=== PATIENT | female | born 1965 | race Hispanic/Latino ===

== ENCOUNTER 2018-08-08 12:58 | Inpatient (IN) | payer OTHER ==
[~2018-08-08] VITALS: Ht 172.7 cm; Wt 112.5 kg
[2018-08-08 13:18] LABS: BASOPHILS % (AUTO) 0.6 % (0.0-5.0); EOSINOPHILS % (AUTO) 1.3 % (0.0-8.0); HEMATOCRIT 35.5 % (36-48); MEAN CORPUSCULAR HEMOGLOBIN 30.6 pg (27.0-33.0); MEAN CORPUSCULAR HGB CONC 34.1 g/dL (32.0-36.0); MEAN CORPUSCULAR VOLUME 89.8 fL (79-99); MONOCYTES % (AUTO) 5.4 % (3.0-13.0); NEUTROPHILS % (AUTO) 67.7 % (40.0-77.0); PLATELET COUNT (AUTO) 280 K/uL (130-400); RED BLOOD CELL COUNT(AUTO) 3.95 MIL/uL (4.00-5.50); RED CELL DISTRIBUTION WIDTH 12.9 % (11.0-15.5)
[2018-08-08 13:25] LABS: POTASSIUM 3.5 mmol/L (3.5-5.1)
[2018-08-08 13:29] LABS: ALBUMIN 4.2 g/dL (3.5-5.0); BILIRUBIN,TOTAL 0.4 mg/dL (0.2-1.0); TOTAL PROTEIN, SERUM 7.9 g/dL (6.0-8.3)
[2018-08-08] MEDS ORDERED: SODIUM CHLORIDE 0.9% 1000ML 1,000 ML IV ONE (13:46)
[2018-08-08] MEDS ORDERED: ACETAMINOPHEN 325 MG TAB ONE (14:01)
[2018-08-08 14:09] LABS: BILIRUBIN,URINE Negative (NEGATIVE); COLOR,URINE Yellow (YELLOW); GLUCOSE, URINE (UA) Negative (NEGATIVE); KETONES,URINE 15 mg/dL (NEGATIVE); LEUKOCYTE ESTERASE ,URINE Negative (NEGATIVE); NITRATE,URINE Negative (NEGATIVE); OCCULT BLOOD,URINE Negative (NEGATIVE); PROTEIN,URINE Negative (NEGATIVE); UROBILINOGEN,URINE 0.2 mg/dL (0.2-1.0)
[2018-08-08 14:24] LABS: APPEARANCE,URINE CLEAR (CLEAR)
[2018-08-08 14:29] LABS: BACTERIA,URINE Rare /HPF (None Seen); RBC,URINE 0-1 /HPF (0-1); SQUAMOUS EPITHELIAL CELL,UR Rare /HPF (0-2); WBC,URINE None Seen /HPF (0-1)
[2018-08-08] MEDS ORDERED: ONDANSETRON HCL 4 MG/2 ML VIAL IVP PRN (16:15)
[2018-08-08] MEDS ORDERED: SODIUM CHLORIDE 0.9% 10 ML VIAL IVP SCH (16:15)
[2018-08-08] MEDS ORDERED: NITROGLYCERIN 0.4 MG SL TAB SL PRN (16:15)
[2018-08-08] MEDS ORDERED: CLONIDINE HCL 0.1 MG TABLET PO PRN (16:15)
[2018-08-08] MEDS ORDERED: POTASSIUM CHLORIDE 20MEQ/100ML 100 ML IV PRN (16:15)
[2018-08-08] MEDS ORDERED: DiphenhydrAMINE HCL 50 MG/ML VIAL IVP PRN (16:15)
[2018-08-08] MEDS ORDERED: POTASSIUM CHLORIDE 10% ELIXIR 20 MEQ/15 ML UDCUP PO PRN (16:15)
[2018-08-08] MEDS ORDERED: ACETAMINOPHEN 325 MG TAB PO PRN ×2 (16:15)
[2018-08-08] MEDS ORDERED: LACTULOSE 20 GM/30 ML UDCUP PO PRN (16:15)
[2018-08-08] MEDS ORDERED: LIDOCAINE HCL-MPF 1% 2ML VIAL IJ PRN (16:15)
[2018-08-08] MEDS ORDERED: GUAIFENESIN-DM 200/20 MG 10 ML PO PRN (16:15)
[2018-08-08] MEDS ORDERED: ZOLPIDEM TARTRATE 5 MG TAB PO PRN (16:15)
[2018-08-08] MEDS ORDERED: MAG HYDROX/AL HYDROX/SIMETH ES 30 ML SUSP UDCUP PO PRN (16:15)
[2018-08-08] MEDS ORDERED: DIPHENHYDRAMINE HCL 25 MG CAPSULE PO PRN (16:15)
[2018-08-08] MEDS ORDERED: IPRATROPIUM/ALBUTEROL SULFATE 3 ML SOLUTION IH PRN (16:30)
[2018-08-08] MEDS: SODIUM CHLORIDE 0.9% 1000ML 1,000 ML IV SCH ×2 (16:30→20:00)
[2018-08-08] MEDS ORDERED: DiphenhydrAMINE HCL 50 MG/ML VIAL ONE (16:42)
[2018-08-08] MEDS ORDERED: IPRATROPIUM/ALBUTEROL SULFATE 3 ML SOLUTION IH ONE (16:57)
[2018-08-08 19:00] VITALS: BP 131/64
[2018-08-08] MEDS ORDERED: SODIUM CHLORIDE 0.9% 1000ML 1,000 ML IV SCH (21:00)
[2018-08-08] MEDS ORDERED: FAMOTIDINE 20MG TAB 20 MG TAB PO SCH (21:00)
[2018-08-08] MEDS: POTASSIUM CHLORIDE 20 MEQ ERTAB PO PRN (21:47)
[2018-08-08] MEDS ORDERED: IBUPROFEN 800 MG TAB PO PRN (23:45)
[2018-08-09] VITALS (19 sets, daily range): BP systolic 100–166; BP diastolic 51–93
[2018-08-09] MEDS: SODIUM CHLORIDE 0.9% 1000ML 1,000 ML IV SCH ×7 (00:30→23:43)
[2018-08-09] MEDS ORDERED: BC POWDER PO (02:48)
[2018-08-09] MEDS ORDERED: LEVO150 PO (02:48)
[2018-08-09] MEDS ORDERED: MELO-108 PO (02:48)
[2018-08-09] MEDS ORDERED: IRBE1TAB41 PO (02:48)
[2018-08-09] MEDS: POTASSIUM CHLORIDE 20 MEQ ERTAB PO PRN (04:06)
[2018-08-09] MEDS ORDERED: FAMOTIDINE 20MG TAB 20 MG TAB ONE (08:41)
[2018-08-09] MEDS: PANTOPRAZOLE SODIUM 40 MG TABLET.DR PO SCH (09:03)
--- NOTE | 2018-08-09 10:54 | NUR ---
MODESTA AWARE OF EGD W MAC AT 1200NOOON TODAY BY DR. SOTO.
[2018-08-09] MEDS ORDERED: PROPOFOL 10 MG/ML 20ML VIAL IV ONE (15:21)
--- NOTE | 2018-08-09 15:45 | NUR ---
DCP CM met with pt discussed dc plans. Pt is independent prior to admission, lives at home alone, parents lives close by. Denies any equipments/services. Pt feels safe to go back home, still drives arranges own meds and needs. DC plan to home once stable. CM to cont to follow up. Addendum: 08/09/18 at 1546 by CARLIE MONTEIRO LVN CM Amended: Links added.
[2018-08-09] MEDS ORDERED: PEG 3350/NA SULF,BICARB,CL/KCL 4000 ML SOLN PO SCH (17:00)
[2018-08-09] MEDS ORDERED: MAGNESIUM CITRATE 296 ML SOLUTION PO SCH (17:00)
[2018-08-09] MEDS ORDERED: LACTULOSE 20 GM/30 ML UDCUP PO SCH (17:00)
[2018-08-09] MEDS ORDERED: TRAM50TA4 PO (20:10)
[2018-08-09] MEDS ORDERED: TRAMADOL HCL 50 MG TABLET PO PRN (20:15)
--- NOTE | 2018-08-09 22:10 | NUR ---
colon prep tap h2o enema #1 done per protocol, completed ,tolerated well, awaiting result Addendum: 08/09/18 at 2212 by BOB WATSON RN RN Amended: Links added.
[2018-08-09] MEDS: ZOLPIDEM TARTRATE 5 MG TAB PO PRN (22:29)
[2018-08-10] VITALS (19 sets, daily range): BP systolic 107–144; BP diastolic 56–79
--- NOTE | 2018-08-10 05:03 | NUR ---
colon prep #2 tap water enema completed , tolerated well , awaiting result Addendum: 08/10/18 at 0504 by BOB WATSON RN RN Amended: Links added.
--- NOTE | 2018-08-10 05:32 | NUR ---
result from colon prep x1 more large bm watery light brown with pinkish tinge , scant amount solid specks,will continue to monitor,explained,reassured pt ,pinkish tinge could be due to irritation of rectum r/t frequent stools starting from last night,verbalized understanding Addendum: 08/10/18 at 0536 by BOB WATSON RN RN Amended: Links added.
[2018-08-10 05:57] LABS: CREATININE 0.8 mg/dL (0.5-1.5); POTASSIUM 3.6 mmol/L (3.5-5.1)
[2018-08-10] MEDS: LEVOTHYROXINE 150 MCG TABLET PO SCH (06:35)
[2018-08-10] MEDS: LOSARTAN/HYDROCHLOROTHIAZIDE 50-12.5MG TABLET PO SCH (09:00)
--- NOTE | 2018-08-10 09:10 | NUR ---
REJI/ DR. JOVANY MANZO HERE TO SEE PT, INFORMED HIM PENDING COLONOSCOPY TODAY AND HAD EGD YESTERDAY.
[2018-08-10] MEDS: SODIUM CHLORIDE 0.9% 1000ML 1,000 ML IV SCH ×4 (11:28→19:53)
--- NOTE | 2018-08-10 13:50 | NUR ---
TO PROCEDURE PT TAKEN DOWN FOR PROCEDURE
[2018-08-10] MEDS ORDERED: PROPOFOL 10 MG/ML 20ML VIAL IV ONE (14:26)
[2018-08-10] MEDS ORDERED: GLYCOPYRROLATE 0.2 MG/ML 5 ML VIAL ONE (14:27)
[2018-08-10] MEDS ORDERED: LIDOCAINE HCL 1% 20 ML VIAL ONE (14:27)
--- NOTE | 2018-08-10 15:55 | NUR ---
RETURN FROM PROCEDURE PT RETURNED FROM PROCEDURE, AWAKE AND ALERT, NO DISTRESS NOTED.
[2018-08-10] MEDS: PANTOPRAZOLE SODIUM 40 MG TABLET.DR PO SCH (15:56)
--- NOTE | 2018-08-10 17:55 | NUR ---
CALL TO DR. MANZO T/C PLACED TO DR. MANZO, INFORMED HIM OF COLONOSCOPY RESULTS AND THAT PT CAN BE DISCHARGE, STATES WILL SEE PT TOMORROW.
[2018-08-10] MEDS: ZOLPIDEM TARTRATE 5 MG TAB PO PRN (22:44)
[2018-08-11] MEDS: SODIUM CHLORIDE 0.9% 1000ML 1,000 ML IV SCH (03:32)
[2018-08-11 04:00] VITALS: BP 119/59
[2018-08-11 05:12] LABS: HEMATOCRIT 29.7 % (36-48); MEAN CORPUSCULAR HEMOGLOBIN 31.1 pg (27.0-33.0); MEAN CORPUSCULAR HGB CONC 34.2 g/dL (32.0-36.0); MEAN CORPUSCULAR VOLUME 90.8 fL (79-99); NUCLEATED RED BLOOD CELLS 0.1 % (0.0-0.19); PLATELET COUNT (AUTO) 210 K/uL (130-400); RED BLOOD CELL COUNT(AUTO) 3.27 MIL/uL (4.00-5.50); WHITE BLOOD COUNT (AUTO) 4.6 K/uL (4.8-10.8)
[2018-08-11] MEDS: LEVOTHYROXINE 150 MCG TABLET PO SCH (06:38)
[2018-08-11 07:30] VITALS: BP 116/67
[2018-08-11] MEDS: LOSARTAN/HYDROCHLOROTHIAZIDE 50-12.5MG TABLET PO SCH (08:17)
[2018-08-11] MEDS: PANTOPRAZOLE SODIUM 40 MG TABLET.DR PO SCH (08:17)
[2018-08-11 11:00] VITALS: BP 136/86
--- NOTE | 2018-08-11 13:07 | NUR ---
DISCHARGE PATIENT GIVEN DISCHARGE INSTRUCTIONS AND EDUCATION, INCLUDING SIDE EFFECTS ON NEW PRESCRIBED MEDICATIONS, DIET AND FOLLOW UP APPOINTMENTS NEEDED TO BE MADE. PATIENT VERBALIZED UNDERSTANDING OF ALL EDUCATION GIVEN VIA TEACH BACK. NO QUESTIONS OR CONCERNS VOICED AT THIS TIME. IV DISCONTINUED, CATHETER INTACT. NO SIGNS OF DISTRESS NOTED UPON DISCHARGE. PATIENT PENDING RIDE FROM PARENTS. WILL CONTINUE TO BE OBSERVED. CALL LIGHT WITHIN REACH. Addendum: 08/11/18 at 1311 by JOSIE FERNANDEZ RN RN Amended: Links added.
--- NOTE | 2018-08-11 14:00 | NUR ---
DISCHARGE PATIENT LEFT VIA WHEELCHAIR WITH FAMILY AT SIDE TO PRIVATE CAR. ALL BELONGINGS TAKEN WITH. NO SIGNS OF DISTRESS NOTED UPON DISCHARGE. Addendum: 08/11/18 at 1505 by JOSIE FERNANDEZ RN RN Amended: Links added.
== END 2018-08-11 14:00 | disposition home or self-care (01) | DRG 381 ==
LOC: EDH 12:58 → OBSVTOIN 12:59 → EDHIP 12:59 → 4CH 18:53
PROVIDERS: ADMIT Family Medicine; ATTEND Family Medicine
PROC: 0DB58ZX Excision of Esophagus, Via Natural or Artificial Opening Endoscopic, Diagnostic (ICD-10-PCS; 2018-08-09)
PROC: 0DB78ZX Excision of Stomach, Pylorus, Via Natural or Artificial Opening Endoscopic, Diagnostic (ICD-10-PCS; 2018-08-09)
PROC: 0DB68ZX Excision of Stomach, Via Natural or Artificial Opening Endoscopic, Diagnostic (ICD-10-PCS; 2018-08-09)
PROC: 0DBP8ZZ Excision of Rectum, Via Natural or Artificial Opening Endoscopic (ICD-10-PCS; principal; 2018-08-10)
PROC: 0D5M8ZZ Destruction of Descending Colon, Via Natural or Artificial Opening Endoscopic (ICD-10-PCS; 2018-08-10)
DX: K22.11 Ulcer of esophagus with bleeding (principal); D62 Acute posthemorrhagic anemia; K55.21 Angiodysplasia of colon with hemorrhage; K25.4 Chronic or unspecified gastric ulcer with hemorrhage; R19.5 Other fecal abnormalities; E66.01 Morbid (severe) obesity due to excess calories; D50.0 Iron deficiency anemia secondary to blood loss (chronic); E04.2 Nontoxic multinodular goiter; E11.9 Type 2 diabetes mellitus without complications; I10 Essential (primary) hypertension; K62.1 Rectal polyp; K64.0 First degree hemorrhoids; R63.4 Abnormal weight loss; K21.0 Gastro-esophageal reflux disease with esophagitis; K44.9 Diaphragmatic hernia without obstruction or gangrene; E03.9 Hypothyroidism, unspecified; Z68.37 Body mass index [BMI] 37.0-37.9, adult; Z90.710 Acquired absence of both cervix and uterus; Z87.891 Personal history of nicotine dependence; Z85.42 Personal history of malignant neoplasm of other parts of uterus; Z83.3 Family history of diabetes mellitus; Z82.49 Family history of ischemic heart disease and other diseases of the circulatory system
CPT/HCPCS: 36415; 43239; 45380; 45382; 80048; 80053; 81001; 82270; 85025; 85027; 86677; 88305; 88312; 94640; 94664; G0378; J1200; J2704; J3490; J7030